=== PATIENT | male | born 1975 | race Caucasian/White ===

== ENCOUNTER → 2021-07-11 | Outpatient (CLI) | payer OTHER ==
--- NOTE | 2021-07-11 14:21 | MR ---
EXAMINATION TYPE: MR lumbar spine wo con DATE OF EXAM: 07/11/2021 COMPARISON: NONE HISTORY: Low back pain TECHNIQUE: T1 and T2 axial and sagittal images of the lumbar spine are submitted. FINDINGS: There is no abnormal signal seen within the visualized spinal cord or paraspinal soft tissu es. At L1-2 there is no disc herniation or canal stenosis. No foraminal encroachment. At L2-3 there is mild circumferential disc bulging but no focal herniation or canal stenosis. Neural foramina remain patent. At L3-4 there is no disc herniation or canal stenosis. No foraminal encroachment. At L4-5 there is no disc herniation or canal stenosis. Mild hypertrophy sinus. Minimal posterior disc bulging. No Canal stenosis. At L5-S1 there is degenerative disc disease with broad-based central disc small protrusion with mild effacement of thecal sac. Neural foramina are patent no Canal stenosis. IMPRESSION: 1. Small broad-based central disc protrusion L5-S1 with mild effacement of thecal sac but no canal st enosis or encroachment. 2. Multilevel degenerative disc disease most marked at L5-S1. 3. Additional multilevel areas of disc bulging as discussed above but no focal herniation or canal st enosis
== END | disposition home or self-care (01) ==
LOC: RADMRIMAIN 10:57
PROVIDERS: ATTEND Orthopaedic Surgery
DX: M51.37 Other intervertebral disc degeneration, lumbosacral region (principal); M51.27 Other intervertebral disc displacement, lumbosacral region
CPT/HCPCS: 72148